=== PATIENT | male | born 1990 | race Caucasian/White ===

== ENCOUNTER 2016-07-21 22:09 | Emergency (ER) | payer BC, OTHER ==
[~2016-07-21 22:09] MED LIST: Iopamidol 370 76% 100 ML VIAL ONE
[2016-07-21] MEDS ORDERED: Sodium Chloride 0.9% 1,000 ML ONE (22:58)
[2016-07-21 23:02] LABS: #Basophils 0.1 thou/uL (0.0-0.2); #Eosinphils 0.1 thou/uL (0.0-0.7); #Lymphocytes 2.7 thou/uL (1.20-3.40); #Monocytes 0.5 thou/uL (0.11-0.59); %Basophils 0.6 % (0.0-1.0); %Eosinophils 1.2 % (0.0-10.0); %Lymphocytes 21.5 % (21.0-51.0); %Monocytes 4.1 % (0.0-10.0); Hematocrit 49.7 % (42.0-52.0); Mean Platelet Volume 7.9 fL (7.4-10.4); White Blood Cell (WBC) Count 12.4 thou/uL (4.8-10.8)
[2016-07-21 23:09] LABS: Bilirubin Negative (Negative); Blood, Urine Negative (Negative); Glucose, Urine (Dipstick) Negative (Negative); Ketone, Urine Trace mg/dL (Negative); Nitrite Negative (Negative); Protein, Urine (Dipstick) Negative (Neg-Trace); Urobilinogen 0.2 mg/dL (0.2-1.0)
[2016-07-21 23:11] LABS: Methadone Not Detected (NotDetected); Methamphetamine Not Detected (NotDetected)
[2016-07-21 23:22] LABS: Troponin I 0.041 ng/mL (< 0.028)
[2016-07-21 23:23] LABS: ALT (SGPT) 72 U/L (0-55); AST (SGOT) 84 U/L (5-34); Alkaline Phosphatase 63 U/L (40-150); Anion Gap 21 mmol/L (10-20); BUN (Urea Nitrogen) 17 mg/dL (8.9-20.6); Bilirubin, Total 0.7 mg/dL (0.2-1.2); Calc. Creatinine Clearance 0 mL/min (70-130); Calcium 9.5 mg/dL (7.8-10.44); Carbon Dioxide 18 mmol/L (22-29); Chloride 106 mmol/L (98-107); Estimated GFR-MDRD 83; Globulin 3.3 g/dL (2.4-3.5); Lipase 35 U/L (8-78); Protein, Total 8.4 g/dL (6.0-8.3)
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
[2016-07-22] MEDS ORDERED: Lorazepam 2 MG/ML VIAL ONE (01:18)
== END 2016-07-22 01:40 | disposition short-term general hospital (02) ==
LOC: NAV ERS 22:09
DX: S70.312A Abrasion, left thigh, initial encounter (principal); S70.311A Abrasion, right thigh, initial encounter; F10.129 Alcohol abuse with intoxication, unspecified; R79.89 Other specified abnormal findings of blood chemistry; V89.2XXA Person injured in unspecified motor-vehicle accident, traffic, initial encounter
CPT/HCPCS: 36415; 70450; 71260; 72125; 74177; 80053; 80306; 80307; 81003; 82553; 83690; 84484; 85025; 93005; 96361; 96374; J2060; J7050